=== PATIENT | male | born 2000 | race Caucasian/White ===

== ENCOUNTER 2019-03-06 11:56 | Day surgery (SDC) | payer OTHER ==
[~2019-03-06] VITALS: Ht 182.9 cm; Wt 101.3 kg
[~2019-03-06 11:56] MED LIST: /AUGM875TA; ALLE25CA; BACT800T5 PO; CLEO300C; DOCU10CA PO; FLAG500T PO; HYDR-3713 PO; IBUP400T; LR 1,000 ML IV ONE; TYLE325T5 PO; ceFAZolin SOD 2 GM in IV 1 EA IV ONE
[2019-03-06] MEDS ORDERED: BUPIVACAINE/EPIN 0.25% 30 ML VIAL As Ordered ONE (13:55)
[2019-03-06] MEDS ORDERED: dexameTHASONE 4 MG/ML 1ML VIAL (J1100) As Ordered ONE (14:16)
[2019-03-06] MEDS ORDERED: PROPOFOL 200 MG/20 ML VIAL As Ordered ONE (14:16)
[2019-03-06] MEDS ORDERED: LIDOCAINE 2% INJ 100 MG/5 ML SDV (FOR ANES.) As Ordered ONE (14:16)
[2019-03-06] MEDS ORDERED: fentaNYL 100 MCG/2 ML INJECTION (J3010) As Ordered ONE ×2 (14:16→15:28)
[2019-03-06] MEDS ORDERED: MIDAZOLAM INJ 2 MG/2 ML VIAL (J2250) As Ordered ONE (14:16)
[2019-03-06] MEDS ORDERED: KETOROLAC 60 MG/2 ML VIAL (J1885) As Ordered ONE (14:24)
[2019-03-06] MEDS ORDERED: ONDANSETRON 4MG/2ML VIAL (J2405) As Ordered ONE (14:24)
[2019-03-06] MEDS ORDERED: PERCOCET 5MG/325MG TAB As Ordered ONE (15:28)
[2019-03-06] MEDS: fentaNYL 100 MCG/2 ML INJECTION (J3010) IV PRN ×4 (15:30→15:46)
[2019-03-06] MEDS ORDERED: PERCOCET 5MG/325MG TAB PO PRN (15:45)
[2019-03-06] MEDS ORDERED: LR 1,000 ML IV SCH (15:45)
[2019-03-06] MEDS ORDERED: ONDANSETRON 4MG/2ML VIAL (J2405) IV PRN (15:45)
[2019-03-06] MEDS ORDERED: MORPHINE 10 MG/ML 1ML VIAL (J2270) IV PRN (15:45)
[2019-03-06] MEDS ORDERED: MORPHINE 2 MG/ML 1ML VIAL (J2270) IV PRN (16:46)
[2019-03-06] MEDS ORDERED: oxyCODONE 5MG TAB PO PRN ×2 (16:46)
--- NOTE | 2019-03-06 17:14 | REP ---
Right hand: Intraoperative imaging. 39 views. History: Open reduction internal fixation. 61 seconds of fluoroscopy time is reported. Findings: A sequence 39 fluoroscopically obtained spot radiographs document open reduction internal fixation of the fifth metacarpal fracture. Electronically Signed by Antonio Louis MD 03/06/2019 05:15 P
[2019-03-06 17:50] VITALS: BP 120/64
--- NOTE | 2019-03-07 11:26 | RO ---
DATE OF PROCEDURE: 03/06/2019 PREOPERATIVE DIAGNOSIS: Right 5th metacarpal shaft fracture. POSTOPERATIVE DIAGNOSIS: Right 5th metacarpal shaft fracture. PROCEDURE: Open reduction and internal fixation right metacarpal shaft 5th. SURGEON: Dr. Walter Quevedo INDICATION: 19-year-old male that had complete displacement after a fall of his right 5th metacarpal shaft. We discussed that while it may heal nonoperatively, it will heal shortened he may suffer an extensor lag as a result. Patient wished to proceed with open reduction and internal fixation. He understood the risks and benefits including, but not limited to infection, damage to surrounding structures and malunion, nonunion. COMPLICATIONS: None. PREOPERATIVE ANTIBIOTICS: 2 grams Ancef. LAND COMMISSIONER: None. ANESTHESIA: General. TOURNIQUET TIME: 37 minutes. BLOOD LOSS: Minimal. DESCRIPTION OF PROCEDURE: The patient was taken back to the operating room (OR) in supine position and underwent general anesthesia at which point the right arm was prepped and draped in the usual fashion then a time-out was done confirming site, side, and surgery. Once all in agreement, we made a longitudinal incision over the 5th metacarpal. We sharply dissected through the subcutaneous tissue paying careful attention for subcutaneous nerves retracted safely out of the way, we identified the fracture site and debrided some of the callus formation using knife and curettes. At which point we closed reduced the fracture. Due to difficulty passing intramedullary wire, we decided to proceed with open reduction and internal fixation with a 2.0 plate, placed two cortical screws on either end loading in compression at which point we confirmed adequate reduction on AP and lateral obliques. We then irrigated the wound thoroughly, closed with 3-0 Vicryl, 3-0 Monocryl, Mastisol, sterile gauze and placed in ulnar gutter splint with good blood flow to the digits and splinted in intrinsic plus Patient was awakened and taken to the post-anesthesia care unit (PACU) in stable condition. POSTOPERATIVE PLAN: Patient will work on pain control. See me in the office in 2 weeks at which we will progress him to active assisted range of motion under close supervision of therapy. Patient expressed understanding ahead of time. KADY
== END 2019-03-06 18:10 | disposition home or self-care (01) ==
LOC: M SDC 11:56
PROVIDERS: ATTEND Orthopaedic Surgery Hand Surgery
DX: S62.326A Displaced fracture of shaft of fifth metacarpal bone, right hand, initial encounter for closed fracture (principal); W19.XXXA Unspecified fall, initial encounter; Y92.89 Other specified places as the place of occurrence of the external cause; Y93.9 Activity, unspecified; Y99.9 Unspecified external cause status; Z88.0 Allergy status to penicillin
CPT/HCPCS: 26615; 76000; C1713; J0690; J1100; J1885; J2250; J2405; J3010